=== PATIENT | male | born 1960 | race Caucasian/White ===

== ENCOUNTER 2019-01-25 08:16 | Day surgery (SDC) | payer BC ==
[~2019-01-25] VITALS: Ht 167.6 cm; Wt 71.8 kg
[2019-01-25] VITALS (19 sets, daily range): BP systolic 95–159; BP diastolic 57–99; PULSE 56–94; RESP 11–23; Ht 167.6 cm; Wt 71.8 kg
[2019-01-25] MEDS ORDERED: SOD CHLORIDE 0.9% 1,000 ML IV SCH (09:00)
[2019-01-25] MEDS ORDERED: CEFAZOLIN 1 GM/50 ML (PMX) 50 ML IVPB ONE (09:00)
[2019-01-25] MEDS ORDERED: BUPIVACAINE 0.25% (MPF) 30 ML INJ ONE (10:39)
--- NOTE | 2019-01-25 10:55 | PREAC ---
Date/Time of Note Date/Time of Note DATE: 01/25/19 TIME: 10:54 Anesthesia Eval and Record Evaluation Time Pre-Procedure Interview DATE: 01/25/19 TIME: 10:54 Age 58 Sex male NPO: 8 hrs Preoperative diagnosis cholelithiasis Planned procedure lap denisa Past Medical History Past Medical History: Includes Pulm: COPD GI: GERD Psych: Depression Surgery & Anesthesia Issues No known issue Meds Anticoagulation: No Beta Osei within 24 hr: No Reason Beta Osei not given: Pt. not on B-Osei No Active Prescriptions or Reported Meds Current Medications Sodium Chloride 1,000 ml @ 75 mls/hr [id number] IV Last administered on 01/25/19at 09:00; Admin Dose 75 MLS/HR; Start 01/25/19 at 09:00; Stop 01/25/19 at 22:19 Meds reviewed: Yes Allergies Coded Allergies: No Known Drug Allergies (Unverified Allergy, Unknown, 01/25/19) Allergies Reviewed: Yes Labs/Studies Labs Reviewed: Reviewed by anesthesiologist test: Negative Pre-procedure Exam Last vitals Vital Signs Date Temp Pulse Resp B/P (MAP) Pulse Ox O2 O2 Flow FiO2 Time Delivery Rate 01/25/19 97.6 71 16 122/74 99 Room Air 10:22 (90) Airway: Adequate mouth opening, Adequate thyromental dist Mallampati: Mallampati II Teeth: Normal Lung: Normal Heart: Normal ASA Physical Status ASA physical status: 3 Emergency: None Planned Anesthetic General/MAC: ETT Nerve block: TAP (bilateral) Planned Pain Management Parenteral pain med Pre-operative Attestations Prior to commencing anesthesia and surgery, the patient was re-evaluated, there was verification of: *The patient's identity *The results of appropriate recent lab work and preoperative vital signs *The above evaluation not changing prior to induction *Anesthetic plan, risk benefits, alternative and complications discussed with patient/family; questions answered; patient/family understands, accepts and wishes to proceed. Vinicius Zuniga M.D. Jan 25, 2019 10:55
[2019-01-25] MEDS ORDERED: PROPOFOL 20 ML ONE (10:57)
[2019-01-25] MEDS ORDERED: CEFAZOLIN 1 GM INJ ONE (10:57)
[2019-01-25] MEDS ORDERED: DESFLURANE 15 MIN ONE (10:57)
[2019-01-25] MEDS ORDERED: KETOROLAC 30 MG INJ ONE (10:57)
[2019-01-25] MEDS ORDERED: GLYCOPYRROLATE 0.4 MG INJ ONE (10:57)
[2019-01-25] MEDS ORDERED: ROCURONIUM 50 MG INJ ONE (10:57)
[2019-01-25] MEDS ORDERED: NEOSTIGMINE 3 MG/3 ML SYRINGE ONE (10:57)
[2019-01-25] MEDS ORDERED: ROPIVACAINE 0.5 % 30 ML VIAL ONE (10:58)
[2019-01-25] MEDS ORDERED: ONDANSETRON 4 MG INJ ONE (10:58)
[2019-01-25] MEDS ORDERED: DEXAMETHASONE 4 MG/ML 5 ML INJ ONE (10:58)
[2019-01-25] MEDS ORDERED: FENTAnyl 50 MCG/ML VIAL ONE ×3 (10:58→15:10)
[2019-01-25] MEDS ORDERED: MIDAZOLAM 1 MG/ML 2 ML INJ ONE (10:58)
[2019-01-25] MEDS ORDERED: ONDANSETRON 4 MG INJ IV PRN (11:00)
[2019-01-25] MEDS ORDERED: HYDROmorphONE 1 MG/5 ML IV SYRINGE IV PRN ×3 (11:00)
[2019-01-25] MEDS ORDERED: EPHEDrine 25 MG/5 ML SYG IV PRN (11:00)
[2019-01-25] MEDS ORDERED: ALBUTEROL 0.083% (NEB) 2.5 MG/3 ML AMP HHN PRN (11:00)
[2019-01-25] MEDS ORDERED: FENTAnyl 50 MCG/ML VIAL IV PRN ×3 (11:00)
[2019-01-25] MEDS ORDERED: TRIMETHOBENZAMIDE 100 MG/ML VIAL IM PRN (11:00)
[2019-01-25] MEDS ORDERED: IPRATROPIUM (NEB) 0.5 MG/2.5 ML AMP HHN PRN (11:00)
[2019-01-25] MEDS ORDERED: OXYCODONE/ACETAMINOPHEN (5/325) TAB PO PRN ×2 (11:00)
[2019-01-25] MEDS ORDERED: LABETALOL HCL 20MG INJ IV PRN (11:00)
[2019-01-25] MEDS ORDERED: MEPERIDINE 25 MG INJ IV PRN (11:00)
[2019-01-25] MEDS ORDERED: DIPHENHYDRAMINE 50 MG INJ IV PRN (11:00)
[2019-01-25] MEDS ORDERED: MIDAZOLAM 1 MG/ML 2 ML INJ IV PRN (11:00)
[2019-01-25] MEDS ORDERED: hydrALAzine 20 MG INJ IV PRN (11:00)
--- NOTE | 2019-01-25 12:09 | OPR ---
Date/Time of Note Date/Time of Note DATE: 01/25/19 TIME: 12:06 Operative Report Procedure Date: Jan 25, 2019 Preoperative Diagnosis symptomatic gallstones Postoperative Diagnosis same Operation/Procedure Performed laparoscopic cholecystectomy Surgeon see signature line Recruitment And Outreach Assistant none Anesthesia Type: general Estimated Blood Loss: 0 - 10 ml's Transfusion none Specimen gallbladder Grafts/Implants none Complications none Pt Condition Post Procedure: stable Indications This is a 58-year-old male with some tender gallstones. He requires surgical excision of his gallbladder. Risks alternatives benefits and personal were discussed the patient. Potential complications including but not limited to bleeding infection injury to surrounding tissues injury to common bile duct were discussed the patient. Patient expressed understanding and consents to the operation. Procedure Description Patient is taken to the OR and prepped and draped in usual sterile fashion. Surgical time was performed. IV antibiotics given. Infraumbilical transverse incision made with a 15 blade. Dissection with cautery skin onto the fascia. The fascia was grasped with Arya's and divided with curved Jiménez scissors. 0 Vicryl use this was placed into the fascia. Lo trocar was introduced. Pneumoperitoneum was established. Midepigastric 12 mm optical trochars placed under direct visualization. Right upper quadrant upper flank 5 mm optical trochars were placed under direct visualization. Upon initial inspection there is adhesions to the gallbladder. The gallbladder was grasped with the fundus retracted and lateral cephalad direction. [place] graspers were used to dissec t out the cystic duct and cystic artery. The critical view was established. Cystic duct is divided with 3 clips proximal and 1 clip distal divisions performed lap scopic scissors. Cystic artery was clipped with 3 clips proximal and 1 clip distal. The cystic artery was divided with laparoscopic scissors. The gallbladder is taken of the gallbladder bed. Good hemostasis established. The gallbladder is retrieved Endo Catch bag. All ports removed under direct visualization. 0 Vicryl was tied down. Skin is closed and skin aunp. A tap block was provided by the anesthesiologist at the beginning of the case. Dry dressings were applied. Gary EASTMAN Jan 25, 2019 12:09
[2019-01-25] MEDS ORDERED: HYDROCODONE/APAP (5/325) TAB PO ONE (12:30)
[2019-01-25] MEDS ORDERED: FAMOTIDINE 20 MG INJ ONE (15:10)
--- NOTE | 2019-01-26 14:37 | PAC ---
Date/Time of Note Date/Time of Note DATE: 01/26/19 TIME: 14:37 Post-Anesthesia Notes Post-Anesthesia Note Last documented vital signs Vital Signs Date Temp Pulse Resp B/P (MAP) Pulse Ox O2 O2 Flow FiO2 Time Delivery Rate 01/25/19 96.1 80 16 126/78 96 Room Air 13:37 (94) 01/25/19 2.0 12:32 Activity: WNL Respiratory function: WNL Cardiovascular function: WNL Mental status: Baseline Pain reasonably controlled: Yes Hydration appropriate: Yes Nausea/Vomiting absent: Yes Vinicius Zuniga M.D. Jan 26, 2019 14:37
== END 2019-01-25 14:59 | disposition home or self-care (01) ==
LOC: SDS 08:16
PROVIDERS: ATTEND Surgery
DX: K80.10 Calculus of gallbladder with chronic cholecystitis without obstruction (principal); F32.9 Major depressive disorder, single episode, unspecified; K21.9 Gastro-esophageal reflux disease without esophagitis; J44.9 Chronic obstructive pulmonary disease, unspecified; Z82.49 Family history of ischemic heart disease and other diseases of the circulatory system; Z83.3 Family history of diabetes mellitus
CPT/HCPCS: 47562; 88304; J0690; J1100; J1170; J1885; J2175; J2250; J2405; J2710; J2795; J3010; J3250; Z7512; Z7610